=== PATIENT | female | born 1990 | race Caucasian/White ===

== ENCOUNTER 2023-02-15 11:02 | Outpatient (CLI) | payer OTHER, SELFPAY ==
[2023-02-15] VITALS (14 sets, daily range): BP systolic 95–131; BP diastolic 51–80; PULSE 88–113; TEMP 37.2; BMI 27.8
[2023-02-15] MEDS: ondansetron 2 mg/ML SDV 2 mL 4 MG IVP (13:32)
[2023-02-15] MEDS: lactated ringers 1,000 ML 999 ML IV ×2 (13:33→14:30)
[2023-02-15 14:09] LABS: Bilirubin Urine Neg (Negative); Blood Urine Neg (Negative); Glucose Urine UA Norm (Normal); Ketones Urine 3+ (Negative); Nitrate Urine Negative (Negative); Protein Urine 1+ (Negative); Specific Gravity, Urine 1.025 (1.005-1.030); Urine Appearance Clear (CLEAR); Urine Color Dark Yellow (Yellow); Urobilinogen Urine 1 mg/dL (Negative); pH Urine 5 (5-7)
[2023-02-15 14:10] LABS: Add Urine Microscopic? YES; Leukocyte Esterase Urine Trace (Negative)
[2023-02-15 14:11] LABS: Add Urine Culture? No; Bacteria Urine 1+ /hpf; Mucus Urine 2+ /hpf; RBC Urine 0-4 /hpf (0-2); Squamous Epithelial Cell Urine 25-40 /hpf (0-5); WBC Urine 0-4 /hpf (0-5)
== END 2023-02-15 15:57 | disposition home or self-care (01) ==
LOC: OPOB 11:11 → OBGYN 11:12
PROVIDERS: PCP Family Medicine; Visit Provider Family Medicine
DX: O36.8190 Decreased fetal movements, unspecified trimester, not applicable or unspecified (principal); O26.899 Other specified pregnancy related conditions, unspecified trimester; R25.2 Cramp and spasm; Z3A.00 Weeks of gestation of pregnancy not specified
CPT/HCPCS: 59025; 81001; 99211; J2405; J7120

== ENCOUNTER 2023-02-16 19:33 | Inpatient (IN) | payer OTHER, SELFPAY ==
[2023-02-15 12:49] VITALS: TEMP 37.2
[2023-02-16] VITALS (29 sets, daily range): BP systolic 109–141; BP diastolic 62–77; PULSE 77–113; RESP 16; TEMP 36.3–36.7; O2SAT 93–100; BMI 26.5
[2023-02-16 11:43] LABS: Basophils % 0.1 %; Eosinophils % 0.1 %; Hematocrit 37.2 % (36-47); Lymphocytes # 0.9 10^3/uL (0.8-4.8); Lymphocytes % 4.8 %; Mean Corpuscular HGB Conc 33.3 g/dL (30-55); Mean Corpuscular Hemoglobin 32.3 pg (27-33); Mean Corpuscular Volume 96.9 fl (85-98); Mean Platelet Volume 8.6 fL (7.4-10.4); Monocytes # 1.2 10^3/uL (0.2-0.9); Monocytes % 6.3 %; Neutrophils # 17.07 10^3/uL (1.8-7.7); Neutrophils % 87.4 %; Nucleated Red Blood Cells % 0 %; Platelet Count 260 10^3/cmm (157-399); Red Blood Count 3.84 10^6/uL (3.85-5.65); Red Cell Distribution Width 13.9 % (12.1-15.1); White Blood Count 19.53 10^3/uL (3.29-11.43)
[2023-02-16] MEDS: lactated ringers 1,000 ML 999 ML IV ×2 (11:47→22:32)
[2023-02-16] MEDS: promethazine 25 mg/mL SDV 1 mL IM (11:47)
[2023-02-16 12:02] LABS: Glucose Urine UA Norm (Normal); Protein Urine 2+ (Negative); Urine Appearance Clear (CLEAR); Urine Color Dark Yellow (Yellow); pH Urine 5 (5-7)
[2023-02-16 12:03] LABS: Bilirubin Urine 1+ (Negative); Blood Urine 2+ (Negative); Ketones Urine 3+ (Negative); Leukocyte Esterase Urine Negative (Negative); Nitrate Urine Negative (Negative); Urobilinogen Urine 4 mg/dL (Negative)
[2023-02-16 12:06] LABS: Alanine Aminotransferase 14 U/L (0-33); Albumin Level 3.9 g/dL (3.5-5.2); Alkaline Phosphatase 152 U/L (35-105); Amorphous Sediment Urine 1+ /hpf; Anion Gap 23.2 (5-19); Aspartate Amino Transferase 18 U/L (0-32); Bacteria Urine TRACE /hpf; Blood Urea Nitrogen 10 mg/dL (6-20); Carbon Dioxide 10 mmol/L (22-29); Chloride 107 mmol/L (98-107); Coarse Granular Casts Urine 0-4 /lpf; Globulin 3.8 g/dL (1.3-4.6); Glomerular Filtration Rate 115.1 mL/min (90-130); Glucose 99 mg/dL (65-115); Mucus Urine 1+ /hpf; Osmolality Calculated 281 mOsm/kg (285-295); Potassium 4.2 mmol/L (3.5-5.1); RBC Urine 0-4 /hpf (0-2); Sodium 136 mmol/L (136-145); Squamous Epithelial Cell Urine 0-4 /hpf (0-5); Total Bilirubin 0.6 mg/dL (0.15-1.2); Total Protein 7.7 g/dL (6.6-8.7); WBC Urine RARE /hpf (0-5)
[2023-02-16 12:07] LABS: Add Urine Culture? No
--- NOTE | 2023-02-16 12:39 | XRR_ITS ---
PROCEDURE INFORMATION: Exam: XR Abdomen Exam date and time: 02/16/2023 1:29 PM Age: 32 years old Clinical indication: Nausea; Additional info: Persistent nausea and vomiting TECHNIQUE: Imaging protocol: Radiologic exam of the abdomen. Views: Frontal supine view of the abdomen. 1 View. COMPARISON: No relevant prior studies available. FINDINGS: Tubes, catheters and devices: Electronic device projecting over the central lower abdomen likely external to the patient with attached wire. Partially visualized metallic densities projecting over the left hemipelvis also in keeping with external artifact. Partially visualized thin curvilinear densities projecting over the central pelvis and curvilinear band of nodularity projecting over the left lower abdomen and pelvis also suspected to represent artifact. Gastrointestinal tract: No air-filled dilated bowel loops or evidence of bowel thickening. Bones/joints: Unremarkable. XR/XR KUB portable [id number] IMPRESSION: No acute findings.
--- NOTE | 2023-02-16 12:43 | PM.OBGYHP ---
Providers/Chief Complaint Admitting Physician: Jian Porter Primary Care Provider: Jian Porter MD Chief Complaint: vomiting HPI APPLIANCE SERVICE REPRESENTATIVE History of Present Illness Valeria Chicas is a 32 year old 6 para 2-0-3-2 female at 37 weeks estimated gestational age presenting to the hospital complaining of intractable vomiting. The patient was seen yesterday in the OB clinic where she was triaged and found to have some vomiting. She was placed on Zofran and found to improve somewhat while in the hospital. As result she was sent home. Apparently after going home she continued to vomit throughout the night and return today for further evaluation. She has not had diarrhea. She is not aware of passing any gas. She did try Zofran at home without success. She has not had any fever. There have been no other sick contacts at home that she is aware of. He has been feeling the baby move. The baby has had a reactive strip here in the hospital. She has had rare contractions. Present Details : 6 Para: 2 Review of Systems General: Reports: 10 or more systems reviewed and unremarkable except in HPI and below Const: Denies: fever(s) Eyes: Denies: change in vision Card: Reports: chest pain (Especially just prior to vomiting.) GI: Reports: nausea, vomiting, hematemesis (Some streaks in vomitus after vomiting for several days) and heartburn; Denies: diarrhea Musc: Reports: back pain Nicholas/Lymph: Denies: easy bruising Medications/Allergies Home Medications Medication Instructions Recorded Confirmed Last Taken Type qyxnhcvm-mvf-Xf-FA 1 mg 1 tab PO DAILY 02/17/23 02/17/23 02/16/23 History tablet Allergies Allergy/AdvReac Type Severity Reaction Status Date / Time No Known Allergies Allergy Verified 02/17/23 06:16 Vitals/I&O/Wt Last Vital Signs Temp 98.9 F 02/15/23 12:49 Pulse 98 02/16/23 12:24 BP 127/77 02/16/23 11:10 Pulse Ox 97 02/16/23 12:24 Weight last 48 hrs Weight 150 lb Physical Exam Const: COMMON NORMALS: patient oriented x3 and alert; apparent distress (Recurrent nausea and vomiting.) HENMT: COMMON NORMALS: moist oral mucous membranes Chest: COMMONS NORMALS: normal inspection of the chest Resp: COMMON NORMALS: clear to auscultation bilaterally AUSCULTATION: clear to auscultation bilaterally Cardio: COMMON NORMALS: regular rate and regular rhythm RATE: regular rate RHYTHM: regular rhythm GI: INSPECTION: Yes normal to inspection and Yes other (Gravid) Extremity: COMMON NORMALS: normal to inspection GENERAL: Yes edema (Trace) Neuro: COMMON NORMALS: patient oriented x3, moves all extremities and no sensory deficits noted SENSORIUM/ORIENTATION: Yes alert Psych: COMMON NORMALS: mental status grossly normal Skin: COMMON NORMALS: no rashes or lesions noted GENERAL SKIN EXAM: no rashes or lesions noted Data 02/16/23 11:30 02/16/23 11:30 Other Labs: Urinalysis demonstrates ketones, specific gravity of 1.3, and 2+ urine protein A&P Assessment and plan (1) 37 weeks gestation of : (2) Intractable vomiting: The etiology of her vomiting is not clear. We are hydrating her with 2 L of lactated ringer. Her carbon dioxide level is low so I am getting a an ABG. Because she does not recall passing gas I am going to also do a KUB to evaluate for obstruction. We will continue to try different medications to address her nausea and vomiting. We will adjust our diagnostics and therapeutics based on the information we gained from further testing. Due to the protein in her urine were also going to check a protein creatinine ratio. Attestations Medical Necessity Statement*: I anticipate the patient will spend the night, and possibly more depending on how she responds to therapy and will be determined about the etiology of her nausea vomiting. Coding Level of Care Code Acute Code for Chg Fwd Diagnoses 37 weeks gestation of Z3A.37 Intractable vomiting R11.10
[2023-02-16] MEDS: metoclopramide 5 mg/mL SDV 2 mL 10 MG IVP ×2 (12:51→16:27)
[2023-02-16 12:55] LABS: ABG PCO2 22.7 mmHg (35-45); ABG PH Result 7.27 (7.35-7.45); Alveolar-Arterial Oxygen Gradi 2.5 mmHg (5-10); Arterial Blood Gas Hematocrit 36.8 % (37-47); Base Excess ABG -14.8 mmol/L (-2.0-2.0); Blood Gas Allen Test Pos; Blood Gas Operator Identificat MONRO; Blood Gas Sample Site Radial, left; Blood Gas Sample Type Arterial; Carboxyhemoglobin 1.1 %THgb (0.4-20.1); HCO3 ABG 10.3 mmol/L (22-26); Ionized Calcium Level - ABG 1.3 mmol/L (1.1-1.4); Methemoglobin 0.3 % (0.4-1.5); Oxygen Device ROOM AIR; Oxygen Saturation ABG 98.3; PO2 ABG 99.7 mmHg (80.0-100.0); Potassium Level - ABG 4.2 mmol/L (3.5-5.0)
[2023-02-16] MEDS: famotidine 20 mg/2 mL INJ IVP (15:50)
--- NOTE | 2023-02-16 16:38 | USR_ITS ---
PROCEDURE INFORMATION: Exam: US Abdomen, Limited; Right Upper Quadrant Exam date and time: 02/16/2023 5:32 PM Age: 32 years old Clinical indication: Nausea and vomiting; ; Additional info: N/v TECHNIQUE: Imaging protocol: Real time ultrasound of the abdomen with image documentation. Limited exam focused on the right upper quadrant. COMPARISON: CR (ABDOMEN, ) 02/16/2023 1:29 PM FINDINGS: Liver: Liver is homogeneous in echogenicity measuring 17.9 cm in length. Gallbladder: No gallstones are identified. The gallbladder is fluid-filled. Gallbladder wall is normal thickness at 2.6 mm. Biliary ducts: Common bile duct is measures 5.6 mm. Pancreas: Visualized pancreas is unremarkable. Right kidney: There is mild right hydronephrosis with caliectasis and mild dilatation of the right renal pelvis measuring 1.1 cm. The right kidney otherwise has an appropriate appearance. Right renal cortex measures 1.1 cm in thickness. The right kidney measures 9.8 cm in length. No nephrolithiasis. US/US gall bladder [id number] IMPRESSION: 1. Mild right hydronephrosis. 2. Unremarkable gallbladder. Common bile duct measurement is at the upper limits of normal. Otherwise unremarkable exam.
[2023-02-16 17:32] LABS: Urine Creatinine 142 mg/dL (28-217)
[2023-02-16 17:58] LABS: UPRO/UCREAT Ratio 1.18 mg/mg CR; Urine Protein Random 168 mg/dL
[2023-02-16] MEDS: ondansetron 2 mg/ML SDV 2 mL 8 MG IVP (19:36)
[2023-02-16] MEDS: ampicillin 2,000 MG in sodium chloride 0.9% (plus) 50 ML 100 MG IV (20:30)
[2023-02-16] MEDS: oxytocin 30 UNIT/500 ML BAG IV (20:37)
[2023-02-16] MEDS: alum-mag-hydroxide-sime 30 mL UDC PO (22:25)
[2023-02-16] MEDS: dextrose 5%-lactated ringers 1,000 ML 125 ML IV (23:30)
--- NOTE | 2023-02-16 23:40 | ANES.PREANE2 ---
Pre-Anesthetic Assessment Height/Weight: Height 1.6 m Weight 68.039 kg Temp Pulse Resp BP Pulse Ox O2 Del Method 98.1 F 81 16 117/67 97 Room Air 02/16/23 23:15 02/16/23 23:54 02/16/23 11:18 02/16/23 23:59 02/16/23 23:54 02/16/23 20:16 Preop Diagnosis: IUP Familial anesthetic complications: none Was Beta Ananda taken within 24 hours: N/A Was Clonidine taken within 24 hours: N/A Social No alcohol and No tobacco Exam alert and oriented x 3 Airway Submandibular: within normal limits Cervical ROM: within normal limits Mallampati: Class II Dentition: full History/ROS No significant history except as noted GI Nausea x 4 days Neuropsych curve in c-spine and lower back reported by patient, no issues during epidural insertion. Anesthetic Plan ASA status: 2 Anesthesia: Anesthesia Evaluation, General and Regional (specify below) (epidural) Medications/Allergies Current Medications Generic Name Dose Route Start Last Admin Trade Name Freq PRN Reason Stop Dose Admin Al Hydrox/Mg Hydrox/Simethicone 30 ml 02/16/23 19:18 02/16/23 22:25 Fapl-Pxc-Cdisgdhsz-Baldemar 30 Ml Udc PO 30 ml Q4H PRN Administration Indigestion (Use 2nd) Famotidine 20 mg 02/16/23 14:30 02/16/23 15:50 Famotidine 20 Mg/2 Ml Inj IVP 20 mg Q12H TRUNG Administration Lactated Ringer's 1,000 mls @ 125 mls/hr 02/16/23 11:18 02/16/23 11:47 Lactated Ringers IV 999 mls/hr .Q8H PRN Administration VOMITING Oxytocin 30 unit in 500 mls @ 1 mls/hr 02/16/23 19:30 02/16/23 23:15 Pitocin IV 9 milliunit/min .Q24H TRUNG 9 mls/hr Titration Protocol 1 MILLIUNIT/MIN Lactated Ringer's 1,000 mls @ 999 mls/hr 02/16/23 22:33 02/16/23 22:32 Lactated Ringers IV 999 mls/hr .Q1H1M PRN Administration See label comments Metoclopramide HCl 10 mg 02/16/23 12:39 02/16/23 16:27 Metoclopramide 5 Mg/Ml Sdv 2 Ml IVP 10 mg Q6H PRN Administration NAUSEA AND VOMITING Ondansetron HCl 8 mg 02/16/23 12:17 02/16/23 19:36 Ondansetron 2 Mg/Ml Sdv 2 Ml IVP 8 mg Q6H PRN Administration NAUSEA AND VOMITING Promethazine HCl 25 mg 02/16/23 11:20 02/16/23 11:47 Promethazine 25 Mg/Ml Sdv 1 Ml IM 25 mg Q6H PRN Administration NAUSEA PFSH Anesthesia Female Reproductive History : 6 Data Anesthesia 02/16/23 11:30 02/16/23 11:30 Short CBC 02/16/23 Range/Units 11:30 WBC 19.53 H (3.29-11.43) 10^3/uL Hgb 12.40 (11.27-16.99) g/dL Hct 37.2 (36-47) % MCV 96.9 (85-98) fl Plt Count 260 (157-399) 10^3/cmm Neut % (Auto) 87.4 % Neut # (Auto) 17.07 H (1.8-7.7) 10^3/uL BMP 02/16/23 11:30 Sodium 136 Potassium 4.2 Chloride 107 Carbon Dioxide 10 L BUN 10 Creatinine 0.6 Glucose 99 Calcium 9.0 Liver Function 02/16/23 Range/Units 11:30 Total Bilirubin 0.6 (0.15-1.2) mg/dL AST 18 (0-32) U/L ALT 14 (0-33) U/L Alkaline Phosphatase 152 H (35-105) U/L Albumin 3.9 (3.5-5.2) g/dL Urine 02/16/23 Range/Units 11:30 Urine Color Dark yellow (Yellow) Urine Appearance Clear (CLEAR) Urine pH 5 (5-7) Ur Specific [place] 1.030 (1.005-1.030) Urine Protein 2+ H (Negative) Urine Glucose (UA) Norm (Normal) Urine Ketones 3+ H (Negative) Urine Nitrate Negative (Negative) Urine Bilirubin 1+ H (Negative) Ur Leukocyte Esterase Negative (Negative) Urine RBC 0-4 H (0-2) /hpf Urine WBC Rare (0-5) /hpf ABG 02/16/23 12:43 Specimen Type Arterial Sample Site Radial, left ABG pH 7.27 L ABG pCO2 22.7 L ABG pO2 99.7 ABG HCO3 10.3 L ABG O2 Saturation 98.3 ABG Base Excess -14.8 L A-a O2 Gradient 2.5 L O2 Delivery Device Room air FiO2 21.0 Cardiac Studies: No Data to Display
[2023-02-16] MEDS: ROPivacaine syringe 100 MG/50 ML SYRINGE 10 MG EPIDURAL (23:58)
[2023-02-17] VITALS (57 sets, daily range): BP systolic 98–136; BP diastolic 51–79; PULSE 66–122; RESP 15–18; TEMP 36.5–36.9; O2SAT 96–100
--- NOTE | 2023-02-17 | P.ANES_ITS ---
Anesthesia Procedures Procedure/Date: 02/17/23 Epidural: Time Out Performed: Yes Consents Signed: Procedure Consent Consent: from patient, risks and benefits reviewed and patient agrees to proceed Lumbar Level: L3-L4 Epidural position: sitting Epidural procedure: sterile prep of area, 1% lidocaine to numb the area, 18 g needle, negative for p aresthesia passed, neg for paresthesia, test dose given, 1.5% xylocaine 1:200k epi, placed PCEA, no systemic response, sterile dressing applied, L.U.D. no apparent complications and 0.2% Ropiavacaine @ mls/hr (10) Additional Comments: MARGARITO at 4, taped at 12 at skin. negative blood/CSF return upon apspiration.
[2023-02-17] MEDS: metoclopramide 5 mg/mL SDV 2 mL 10 MG IVP (00:26)
[2023-02-17] MEDS: ampicillin 1,000 MG in sodium chloride 0.9% (plus) 50 ML 100 MG IV ×2 (00:26→04:16)
[2023-02-17] MEDS: ROPivacaine syringe 100 MG/50 ML SYRINGE 10 MG EPIDURAL ×2 (04:10→07:27)
[2023-02-17] MEDS: famotidine 20 mg/2 mL INJ IVP (04:10)
[2023-02-17 05:57] LABS: Basophils % 0.1 %; Hematocrit 32.1 % (36-47); Lymphocytes # 0.9 10^3/uL (0.8-4.8); Lymphocytes % 5.8 %; Mean Corpuscular HGB Conc 33.6 g/dL (30-55); Mean Corpuscular Hemoglobin 32.5 pg (27-33); Mean Corpuscular Volume 96.7 fl (85-98); Mean Platelet Volume 8.5 fL (7.4-10.4); Monocytes # 1.3 10^3/uL (0.2-0.9); Monocytes % 8.2 %; Neutrophils # 13.47 10^3/uL (1.8-7.7); Neutrophils % 85.1 %; Nucleated Red Blood Cells % 0 %; Platelet Count 215 10^3/cmm (157-399); Red Blood Count 3.32 10^6/uL (3.85-5.65); Red Cell Distribution Width 13.9 % (12.1-15.1); White Blood Count 15.82 10^3/uL (3.29-11.43)
[2023-02-17] MEDS: dextrose 5%-lactated ringers 1,000 ML 125 ML IV (06:12)
[2023-02-17 06:17] LABS: Alanine Aminotransferase 11 U/L (0-33); Anion Gap 16.5 (5-19); Aspartate Amino Transferase 14 U/L (0-32); Potassium 3.5 mmol/L (3.5-5.1); Sodium 138 mmol/L (136-145); Total Bilirubin 0.8 mg/dL (0.15-1.2)
[2023-02-17 06:40] LABS: Albumin Level 3.3 g/dL (3.5-5.2); Alkaline Phosphatase 128 U/L (35-105); Blood Urea Nitrogen 7 mg/dL (6-20); Calcium 8.2 mg/dL (8.5-10.5); Carbon Dioxide 13 mmol/L (22-29); Chloride 110 mmol/L (98-107); Glomerular Filtration Rate 183.8 mL/min (90-130); Glucose 141 mg/dL (65-115); Osmolality Calculated 282 mOsm/kg (285-295); Total Protein 6.3 g/dL (6.6-8.7)
[2023-02-17] MEDS: lidocaine 2% INJ 20 mL INJECTION (09:06)
--- NOTE | 2023-02-17 09:45 | PM.DELIVERY ---
Delivery Note: Date of delivery: February 17, 2023 Pre-delivery diagnoses: 1. 32-year-old 6 at 38 weeks estimated gestational age 2. Intractable vomiting 3. Probable preeclampsia Post-delivery diagnoses: Status post spontaneous vaginal delivery Delivering Physician: Jian Porter Estimated blood loss (mL): 100 Pre-Delivery Course: The patient presented to the hospital with abdominal pain, chest pain, and intractable vomiting. We had difficulty controlling her vomiting despite using promethazine, Reglan, and Zofran. We did IV hydrate her with lactated Ringer's. During the work-up, she was noted to have 2+ protein in the urine and a protein creatinine ratio was ordered and found to be elevated. She also did have a few elevated blood pressures as well. She had a light headache. Otherwise there were no other signs or symptoms of preeclampsia. Since there are no severe features, we did not initiate magnesium. Due to her gestational age, we elected to proceed with induction. She was placed on Pitocin. An epidural was given. An amniotomy was performed shortly before delivery of the baby. Delivery: DELIVERY: The patient progressed to complete without difficulty. She delivered a female with a weight of 7 pounds and 1 ounce with Apgars of 7, 9. The baby was delivered from the TABATHA position and placed on the mother's abdomen. The cord was then clamped and cut. There was no nuchal cord. There was very light meconium. The placenta and 3 vessel cord were delivered intact shortly thereafter. The perineum and vaginal vault were carefully examined. A small second-degree posterior midline laceration was noted. Lidocaine 2% was used to infuse the area. 3-0 Vicryl was used to reapproximate the laceration in the usual fashion.. Both the mother and the baby were in stable condition. Post-Delivery Status: Good A&P Assessment and plan (1) Intractable vomiting: The vomiting has improved postdelivery of the . We will continue to monitor her for nausea and vomiting. We will gradually advance her diet and see how she tolerates it. (2) Spontaneous vaginal delivery: Outside of managing her nausea and vomiting, I anticipate routine care. We will be mindful of any kind of preeclamptic symptoms that she may have and adjust therapy accordingly (3) 38 weeks gestation of : Coding Level of Care Code Acute Code for Chg Fwd Diagnoses Intractable vomiting R11.10 Spontaneous vaginal delivery O80 38 weeks gestation of Z3A.38
[2023-02-17] MEDS: HYDROcodone-acetaminophen 5-325 mg Tablet PO ×2 (10:20→16:38)
[2023-02-17] MEDS: benzocaine-menthol 78 gm Canister 1 SPRAY TOPICAL (10:21)
[2023-02-17] MEDS: lanolin oint 7 gm 1 APPLIC TOPICAL (10:21)
[2023-02-17] MEDS: ibuprofen 800 mg tablet PO ×2 (14:39→21:45)
[2023-02-17] MEDS: docusate sodium 100 mg Capsule PO (18:41)
[2023-02-17 21:02] LABS: Mean Corpuscular HGB Conc 34.2 g/dL (30-55); Mean Corpuscular Hemoglobin 32.7 pg (27-33); Mean Corpuscular Volume 95.7 fl (85-98); Mean Platelet Volume 8.5 fL (7.4-10.4); Platelet Count 210 10^3/cmm (157-399); Red Blood Count 3.24 10^6/uL (3.85-5.65); Red Cell Distribution Width 13.7 % (12.1-15.1); White Blood Count 10.73 10^3/uL (3.29-11.43)
[2023-02-18] MEDS: acetaminophen 325 mg Tablet 650 MG PO (02:27)
[2023-02-18 05:31] VITALS: BP 105/58; PULSE 71; RESP 16; TEMP 36.6; O2SAT 98
--- NOTE | 2023-02-18 07:00 | P.DS_ITS ---
Discharge Providers ADDING MACHINE OPERATOR Date of Admission: 02/16/23 19:33 Date of Discharge: 02/18/23 Attending Provider at Admission: Jian Porter MD Attending Provider at Discharge: Jian oPrter MD Primary Care Provider: Jian Porter MD Diagnoses at Discharge Discharge Diagnosis (1) Intractable vomiting: Status: Acute (2) Spontaneous vaginal delivery: Status: Acute (3) 38 weeks gestation of : Status: Acute Reason for Visit Reason for Visit: vomiting Hospital Course Hospital Course The patient was admitted to the hospital with intractable vomiting. Despite treatments with Reglan, promethazine, and Zofran, she continued to have vomiting and nausea. She also had abdominal pain and chest pain. A work-up was performed including a urinalysis, CBC, CMP, TSH, gallbladder ultrasound, and KUB she was found to have an elevated protein creatinine ratio. She was induced with Pitocin. Epidural was placed. An amniotomy was performed just prior to delivery. She progressed to complete without difficulty. She had an unremarkable delivery of a healthy female infant. Her symptoms improved dramatically after the baby was born. We quickly advance her diet. Her pain im proved. She had no nausea or vomiting other than one brief episode of nausea after delivery of the baby. Information Peripartum Data: Infant Delivery Method: Vaginal Physical Exam Narrative: The patient is alert. She appears comfortable. Her heart has a regular rate and rhythm with no murmurs appreciated. Lungs are clear to auscultation bilaterally. Her fundus is firm and below the umbilicus. Urinary Catheter Management: Garcia Latex: Cath Placed During This Visit: yes, but has since been removed by the nurse Reason for Continuing Indwelling Catheter: Decision to DC Catheter Urinary Catheter Date of Insertion: 02/17/23 Urinary Catheter Time of Insertion: 01:20 Date Urinary Catheter Removed: 02/17/23 Time Urinary Catheter Discontinued: 08:04 Discharge Data Studies Completed and Pending Completed Studies During Hospitalization Category Date Time Status XR KUB portable [id number] Stat Exams 02/16/23 12:39 Completed US gall bladder [id number] Stat Ultrasound 02/16/23 16:38 Completed Radiology Impressions KUB X-Ray 02/16/23 12:39 IMPRESSION: No acute findings. ADDENDUM: 02/16/23 3511 Addendum to clarify that the patient appears to be and the described curvilinear band of nodularity projecting over the left lower abdomen and pelvis corresponds to spine and the thin curvilinear densities projecting over the central pelvis correspond to the calvarium indicating vertex presentation. Partially obscured extremity bones are noted over the lower abdomen. Gallbladder Ultrasound 02/16/23 16:38 IMPRESSION: 1. Mild right hydronephrosis. 2. Unremarkable gallbladder. Common bile duct measurement is at the upper limits of normal. Otherwise unremarkable exam. Laboratory Results WBC 10.73 10^3/uL (3.29-11.43) 02/17/23 20:54 RBC 3.24 10^6/uL (3.85-5.65) L 02/17/23 20:54 Hgb 10.60 g/dL (11.27-16.99) L 02/17/23 20:54 Hct 31.0 % (36-47) L 02/17/23 20:54 MCV 95.7 fl (85-98) 02/17/23 20:54 MCH 32.7 pg (27-33) 02/17/23 20:54 MCHC 34.2 g/dL (30-55) 02/17/23 20:54 RDW 13.7 % (12.1-15.1) 02/17/23 20:54 Plt Count 210 10^3/cmm (157-399) 02/17/23 20:54 MPV 8.5 fL (7.4-10.4) 02/17/23 20:54 Neut % (Auto) 85.1 % 02/17/23 05:48 Lymph % (Auto) 5.8 % 02/17/23 05:48 [place] % (Auto) 8.2 % 02/17/23 05:48 Eos % (Auto) 0.0 % 02/17/23 05:48 Baso % (Auto) 0.1 % 02/17/23 05:48 Neut # (Auto) 13.47 10^3/uL (1.8-7.7) H 02/17/23 05:48 Lymph # (Auto) 0.9 10^3/uL (0.8-4.8) 02/17/23 05:48 [place] # (Auto) 1.3 10^3/uL (0.2-0.9) H 02/17/23 05:48 Eos # (Auto) 0.0 10^3/uL (0.0-0.8) 02/17/23 05:48 Baso # (Auto) 0.0 10^3/uL (0.0-0.1) 02/17/23 05:48 Nucleated RBC % (auto) 0 % 02/17/23 05:48 Nucleated RBCs # 0.0 /100WBC 02/17/23 05:48 Specimen Type Arterial 02/16/23 12:43 Sample Site Radial, left 02/16/23 12:43 ABG pH 7.27 (7.35-7.45) L 02/16/23 12:43 ABG pCO2 22.7 mmHg (35-45) L 02/16/23 12:43 ABG pO2 99.7 mmHg (80.0-100.0) 02/16/23 12:43 ABG HCO3 10.3 mmol/L (22-26) L 02/16/23 12:43 ABG O2 Saturation 98.3 02/16/23 12:43 ABG Base Excess -14.8 mmol/L (-2.0-2.0) L 02/16/23 12:43 [place]ell Test Pos 02/16/23 12:43 A-a O2 Gradient 2.5 mmHg (5-10) L 02/16/23 12:43 Hematocrit 36.8 % (37-47) L 02/16/23 12:43 Hgb O2 Saturation 97.0 % (95-100) 02/16/23 12:43 Carboxyhemoglobin 1.1 %THgb (0.4-20.1) 02/16/23 12:43 Methemoglobin 0.3 % (0.4-1.5) L 02/16/23 12:43 Total Hemoglobin 12.0 g/dL (12-16) 02/16/23 12:43 Sodium 141.0 mmol/L (131-143) 02/16/23 12:43 Potassium 4.2 mmol/L (3.5-5.0) 02/16/23 12:43 Glucose 99.0 mg/dL (70-115) 02/16/23 12:43 Ionized Calcium 1.3 mmol/L (1.1-1.4) 02/16/23 12:43 O2 Delivery Device Room air 02/16/23 12:43 FiO2 21.0 % 02/16/23 12:43 Gaming Department Head ID Amber 02/16/23 12:43 Sodium 138 mmol/L (136-145) 02/17/23 05:48 Potassium 3.5 mmol/L (3.5-5.1) 02/17/23 05:48 Chloride 110 mmol/L (98-107) H 02/17/23 05:48 Carbon Dioxide 13 mmol/L (22-29) L 02/17/23 05:48 Anion Gap 16.5 (5-19) 02/17/23 05:48 BUN 7 mg/dL (6-20) 02/17/23 05:48 Creatinine 0.4 mg/dL (0.5-0.9) L 02/17/23 05:48 GFR Calculation 183.8 mL/min (90-130) H 02/17/23 05:48 Glucose 141 mg/dL (65-115) H 02/17/23 05:48 Calculated Osmolality 282 mOsm/kg (285-295) L 02/17/23 05:48 Calcium 8.2 mg/dL (8.5-10.5) L 02/17/23 05:48 Total Bilirubin 0.8 mg/dL (0.15-1.2) 02/17/23 05:48 AST 14 U/L (0-32) 02/17/23 05:48 ALT 11 U/L (0-33) 02/17/23 05:48 Alkaline Phosphatase 128 U/L (35-105) H 02/17/23 05:48 Total Protein 6.3 g/dL (6.6-8.7) L 02/17/23 05:48 Albumin 3.3 g/dL (3.5-5.2) L 02/17/23 05:48 Globulin 3.0 g/dL (1.3-4.6) 02/17/23 05:48 TSH 0.90 uIU/mL (0.27-4.20) 02/16/23 11:30 Urine Color Dark yellow (Yellow) 02/16/23 11:30 Urine Appearance Clear (CLEAR) 02/16/23 11:30 Urine pH 5 (5-7) 02/16/23 11:30 Ur Specific [place] 1.030 (1.005-1.030) 02/16/23 11:30 Urine Protein 2+ (Negative) H 02/16/23 11:30 Urine Glucose (UA) Norm (Normal) 02/16/23 11:30 Urine Ketones 3+ (Negative) H 02/16/23 11:30 Urine Blood 2+ (Negative) H 02/16/23 11:30 Urine Nitrate Negative (Negative) 02/16/23 11:30 Urine Bilirubin 1+ (Negative) H 02/16/23 11:30 Urine Urobilinogen 4 mg/dL (Negative) H 02/16/23 11:30 Ur Leukocyte Esterase Negative (Negative) 02/16/23 11:30 Urine RBC 0-4 /hpf (0-2) H 02/16/23 11:30 Urine WBC Rare /hpf (0-5) 02/16/23 11:30 Ur Squamous Epith Cells 0-4 /hpf (0-5) H 02/16/23 11:30 Amorphous Sediment 1+ /hpf 02/16/23 11:30 Urine Bacteria Trace /hpf (NONE) 02/16/23 11:30 Coarse Granular Casts 0-4 /lpf H 02/16/23 11:30 Urine Mucus 1+ /hpf 02/16/23 11:30 U Random Total Protein 168 mg/dL 02/16/23 11:30 Urine Creatinine 142 mg/dL (28-217) 02/16/23 11:30 Protein/Creatinin Ratio 1.18 mg/mg CR 02/16/23 11:30 Vitals Last Vital Signs Temp 97.8 F 02/18/23 05:31 Pulse 71 02/18/23 05:31 Resp 16 02/18/23 05:31 BP 105/58 02/18/23 05:31 Pulse Ox 98 02/18/23 05:31 O2 Del Method Room Air 02/18/23 05:31 Discharge Plan Discharge Patient Disposition: Home Condition: Stable Prescriptions: New ibuprofen 800 mg Tablet 800 mg PO TID Qty: 45 0RF Reglan 5 mg tablet 5 mg PO DAILY Qty: 10 0RF Continued gzhkjqww-yti-Mr-FA 1 mg Tablet 1 tab PO DAILY Discharge Orders: Discharge Order (Routine); Ordered 02/18/23 Ordered By: Jian Porter Referrals: Jian Porter MD [Primary Care Provider] - 6 Weeks Discharge Diet: Usual diet Discharge Activity: Limit activity as instructed Patient Instructions: Opioid Safety Discharge Attestations ADDING MACHINE OPERATOR Time Spent in Discharge Care*: less than 30 min Coding Level of Care Code Acute Code for Chg Fwd Diagnoses Intractable vomiting R11.10 Spontaneous vaginal delivery O80 38 weeks gestation of Z3A.38
[2023-02-18] MEDS: calcium carbonate 500 mg Chew Tablet 1000 MG PO (07:22)
--- NOTE | 2023-02-18 08:59 | ANE.PACU2 ---
Inpatient post-anesthesia follow up: Airway intact: Yes Vital signs: Temperature 98.0 F Pulse Rate 71 Respiratory Rate 16 Blood Pressure 122/79 Pulse Oximetry 98 Oxygen Delivery Me thod Room Air Oxygen Flow Rate Fraction of Inspir ed Oxygen Hydration adequate: Yes Nausea and vomiting: No Pain level: 1 Mental status: Baseline
[2023-02-18] MEDS: docusate sodium 100 mg Capsule PO (09:10)
[2023-02-18 10:00] VITALS: BP 122/79; PULSE 71; RESP 16; TEMP 36.7; O2SAT 98
[2023-02-18 10:30] VITALS: BP 122/79; PULSE 71; RESP 16; TEMP 36.7; O2SAT 98
== END 2023-02-18 11:05 | disposition home or self-care (01) | DRG 807 ==
LOC: OPOB 19:34 → OBGYN 19:34
PROVIDERS: Admitting Provider Family Medicine; PCP Family Medicine; Visit Provider Family Medicine
DX: O16.4 Unspecified maternal hypertension, complicating childbirth (principal); Z37.0 Single live birth; O77.0 Labor and delivery complicated by meconium in amniotic fluid; O70.1 Second degree perineal laceration during delivery; O12.14 Gestational proteinuria, complicating childbirth; Z3A.38 38 weeks gestation of pregnancy
CPT/HCPCS: 36415; 36600; 51702; 59025; 59409; 74018; 76705; 80051; 80053; 81001; 82330; 82570; 82805; 84156; 84443; 85025; 85027; 96372; 96374; 99211; J0290; J2405; J2550; J2590; J2765; J2795; J3490; J7120; J7121